=== PATIENT | male | born 1975 | race Caucasian/White ===

== ENCOUNTER 2017-12-29 08:52 | Outpatient (CLI) | payer OTHER ==
[~2017-12-29 08:52] MED LIST: NORFLEX100MG PO; VOLTAREN-XR100 MG PO
== END 2017-12-29 09:14 | disposition home or self-care (01) ==
LOC: LAB 08:52
DX: D64.89 Other specified anemias (principal); E11.9 Type 2 diabetes mellitus without complications; E78.2 Mixed hyperlipidemia; E55.9 Vitamin D deficiency, unspecified; I10 Essential (primary) hypertension; R97.20 Elevated prostate specific antigen [PSA]; R29.898 Other symptoms and signs involving the musculoskeletal system; E03.8 Other specified hypothyroidism; E34.50 Androgen insensitivity syndrome, unspecified; D68.8 Other specified coagulation defects; N40.1 Benign prostatic hyperplasia with lower urinary tract symptoms

== ENCOUNTER 2018-01-07 11:55 | Outpatient (CLI) | payer OTHER | END 2018-01-07 11:56 | disposition home or self-care (01) | LOC: LAB 11:55 | DX: C73 Malignant neoplasm of thyroid gland (principal) ==

== ENCOUNTER 2019-05-09 13:57 | Outpatient (CLI) | payer OTHER | END 2019-05-09 14:12 | disposition home or self-care (01) | LOC: TOM 13:57 | DX: R91.8 Other nonspecific abnormal finding of lung field (principal) ==

== ENCOUNTER 2021-10-13 03:06 | Emergency (ER) | payer OTHER ==
[~2021-10-13] VITALS: Ht 172.7 cm; Wt 110.7 kg
[2021-10-13] MEDS ORDERED: CARVEDILOL ER40 MG (03:16)
[2021-10-13] MEDS ORDERED: SYNTHROID175 MCG (03:16)
[2021-10-13] MEDS ORDERED: LOSARTAN POTASS25 MG PO (06:41)
== END 2021-10-13 06:46 | disposition home or self-care (01) ==
LOC: ER 03:06
DX: I10 Essential (primary) hypertension (principal); R51.9 Headache, unspecified